=== PATIENT | male | born 1945 ===

== ENCOUNTER 2017-05-19 11:47 | Outpatient (CLI) | payer MEDICARE ==
--- NOTE | 2017-05-19 15:37 | Magnetic Resonance Report ---
MRI of the lumbar spine without contrast. History: Multiple myeloma with previous kyphoplasty. Procedure: Sagittal T1-weighted, T2-weighted, inversion recovery images, and axial T1 and T2-weighted images were used in the study. Findings: There is anterior wedging of the T12 vertebral body with associated ill-defined heterogeneous signal throughout the vertebral body. There is loss of height of approximately 35-40%. Similar slightly more pronounced findings are seen in the vertebral body of L1 with more diffuse heterogeneous signal abnormality. Approximately 40-50% loss of height of L1 is present. There is no evidence of disc herniation. Post kyphoplasty changes are seen at L2 with diffuse hypointense T1 and T2 signal. There is 30% loss of height of L2. There is mild narrowing of the disc space at L2-3 but no disc pathology. At the L3-4 level, there is a mild broad-based disc bulge, slightly eccentric to the right with mild to moderate effacement of the anterior thecal sac. At the L4-5 level, there is a mild broad-based disc bulge with minimal effacement of the thecal sac. There is mild facet joint hypertrophy and ligamentum flavum hypertrophy, but no spinal stenosis. Post kyphoplasty changes are seen in the L5 vertebral body. There is moderate disc space narrowing with a mild diffuse disc bulge but no significant effacement of the thecal side. The region of the conus is normal. Impression: Compression deformities of T12, L1, and L2 are described in detail above consistent with involvement of the patient's multiple myeloma. No retropulsed fragments or spinal stenosis. Post kyphoplasty changes are seen at L2 and L5. Multilevel mild degenerative disc disease, but no spinal stenosis.
== END 2017-05-19 11:48 | disposition home or self-care (01) ==
LOC: SPVIMAG 11:47
PROVIDERS: ATTEND Internal Medicine Hematology
DX: M51.36 Other intervertebral disc degeneration, lumbar region (principal); M51.26 Other intervertebral disc displacement, lumbar region; M43.8X5 Other specified deforming dorsopathies, thoracolumbar region; M24.28 Disorder of ligament, vertebrae; C90.00 Multiple myeloma not having achieved remission; Z98.890 Other specified postprocedural states
CPT/HCPCS: 72148